=== PATIENT | female | born 1945 | race American Indian/Alaskan Native ===

== ENCOUNTER 2019-07-11 09:07 | Day surgery (SDC) | payer OTHER ==
[2019-07-11 09:00] LABS: Absolute Lymphocytes (CBC) 0.8 K/uL (0.7-4.9); Basophils % 0.5 % (0-1.3); Hematocrit 34.7 % (36.0-45.0); Lymphocytes % 13.5 % (15.3-44.8); MPV 7.4 fL (7.6-11.3); RBC Red Blood Cell Count 4.26 M/uL (3.86-4.86)
[~2019-07-11 09:07] MED LIST: FENTANYL CITR 100 MCG/2 ML ONE; LIDOCAINE 2% MPF 5 ML VIAL ONE; PROPOFOL 200 MG/20 ML VIAL IV ONE
[2019-07-11] MEDS ORDERED: CEFAZOLIN/SWI 1gm 1 GM/10 ML SYR ONE (09:17)
[2019-07-11] MEDS ORDERED: NA CHLORIDE 0.9% 1,000 ML ONE (09:17)
[2019-07-11 09:27] LABS: Potassium 3.7 mmol/L (3.5-5.1)
--- NOTE | 2019-07-11 09:58 | RAD REPORT ---
EXAM DESCRIPTION: RAD - Chest Pa And Lat (2 Views) - 07/11/2019 9:06 am CLINICAL HISTORY: preop, pending lymph node biopsy COMPARISON: CT imaging June 27, 2019 TECHNIQUE: PA and lateral views of the chest were obtained. FINDINGS: The lungs are clear of failure, infiltrate or mass. Patient has elevation of the left reanna diaphragm matching the CT study. There is partial atelectasis of the left lower lobe. Heart size is normal and central vasculature is within normal limits. No pleural effusion or pneumothorax seen. No acute bony finding noted. No aortic abnormality. IMPRESSION: No acute cardiopulmonary process. Elevated left hemidiaphragm with partial atelectasis left lower lobe.
[2019-07-11] MEDS: BUPIVACAINE 0.5% PF 10 ML VIAL ONE ×2 (10:04→10:35)
[2019-07-11] MEDS ORDERED: Phenylephrine HCl 10 MG/ML 1 ML VIAL ONE (10:44)
[2019-07-11] MEDS ORDERED: NS 0.9% VIAL 20 ML ONE (10:46)
[2019-07-11] MEDS ORDERED: D50W 25 GM/50 ML SYRINGE IV ONE (11:30)
[2019-07-11 11:41] VITALS: O2SAT 95
[2019-07-11] MEDS ORDERED: CODEINE 30MG/APAP 300MG TAB ONE (12:52)
--- NOTE | 2019-07-11 13:09 | EKG ---
Test Date: 2019-07-11 Test Time: 08:41:49 Block Captain: CRISTHIAN MEASUREMENT RESULTS: Intervals: Rate: 76 NM: 182 QRSD: 80 QT: 424 QTc: 477 [place]: P: 47 NM: 182 QRS: 57 T: 66 INTERPRETIVE STATEMENTS: Normal sinus rhythm Normal ECG No previous ECG available for comparison Electronically Signed On 07-11-19 13:08:33 CDT by Joe Wong
[2019-07-11 14:04] VITALS: BP 126/65; TEMP 98.6
--- NOTE | 2019-07-11 22:38 | OP ---
Date of Procedure: 07/11/2019 Surgeon: Marlo Cadena MD Grocery Clerk Checking: JAYLEN Worley. Preoperative Diagnosis: Lymphoma. Postoperative Diagnosis: Lymphoma. Procedure: Excision of left axillary mass. Estimated Blood Loss: Minimal. Specimen: Enlarged lymph node, left axilla. Findings: Enlarged pathologic lymph node. Anesthesia: General. Complications: None. The patient tolerated the procedure, in stable condition, taken to Recovery in good general condition . Procedure In Detail: The patient was brought to the OR and placed in supine position. General anest hesia was begun. The patient was prepped and draped in usual sterile fashion and 3 cm incision was m bruce in the left axilla. Subcutaneous tissue divided. Deep to that, subcutaneous tissue, enlarged ly mph node identified and excised bleeding controlled with cautery and vascular clips and then, the spe cimen sent to Pathology and checked, and it was lymph node. Wound irrigated. Bleeding controlled wi th cautery and then 3-0 chromic was used to reapproximate the subcutaneous tissue and close the skin. Sterile dressing was applied. The patient was awakened and taken to Recovery in good general conditi on. /MODL Voice ID: [id number] Report ID: [id number]
--- NOTE | 2019-07-11 22:38 | DS ---
Date of Discharge: 07/11/2019 Hospital Course: The patient will go to Day Surgery, then home when stable. Disposition: Home. Condition: Stable. Discharge Instructions: Resume home meds and diet. Activity as tolerated. No heavy lifting. Remov e outer dressing in 2 days. Shower, keep wound clean and dry. Follow up in my office in 1 week. Ca antoni for appointment. Tylenol No. 3 one tablet p.o. q.4 p.r.n. pain. Z-Que for patient has upper resp iratory issues and is just starting. Incentive spirometry as ordered. /MODL Voice ID: [id number] Report ID: [id number]
== END 2019-07-11 13:31 | disposition home or self-care (01) ==
LOC: OR 09:07
PROVIDERS: ATTEND Surgery
PROC: 07B60ZX Excision of Left Axillary Lymphatic, Open Approach, Diagnostic (ICD-10-PCS; principal; 2019-07-11 09:00)
DX: C82.14 Follicular lymphoma grade II, lymph nodes of axilla and upper limb (principal); I10 Essential (primary) hypertension; E11.9 Type 2 diabetes mellitus without complications; Z86.73 Personal history of transient ischemic attack (TIA), and cerebral infarction without residual deficits
CPT/HCPCS: 93005; 85025; 80048; 36415; 82947 ×3; 88305; 88333; 71046; 38525; J2704; J2370; J3010; J0690; J7030